=== PATIENT | male | born 1970 | race Asian ===

== ENCOUNTER 2021-11-22 08:05 | Day surgery (SDC) | payer OTHER ==
[~2021-11-22] VITALS: Ht 176 cm; Wt 78.0 kg
[2021-11-22] MEDS ORDERED: diphenhydrAMINE 50 MG/ML VIAL ONE (09:44)
[2021-11-22] MEDS ORDERED: fentaNYL citrate 0.05 MG/ML VIAL ONE (09:44)
[2021-11-22] MEDS ORDERED: MIDAZOLAM 2 MG/2 ML VIAL ONE (09:45)
[2021-11-22] MEDS ORDERED: LIDOCAINE 2% 100 MG/5 ML UJET TP ONE (09:45)
[2021-11-22] MEDS ORDERED: fentaNYL citrate 0.05 MG/ML VIAL IVP ONE (14:15)
[2021-11-22] MEDS ORDERED: MIDAZOLAM 2 MG/2 ML VIAL IVP ONE (14:15)
== END 2021-11-22 10:55 | disposition home or self-care (01) ==
LOC: MMU 08:05 → MDS 08:05
PROVIDERS: ATTEND Internal Medicine Gastroenterology
DX: Z12.11 Encounter for screening for malignant neoplasm of colon (principal); D12.4 Benign neoplasm of descending colon; Z86.010 Personal history of colon polyps; C77.9 Secondary and unspecified malignant neoplasm of lymph node, unspecified; I10 Essential (primary) hypertension; Z20.822 Contact with and (suspected) exposure to COVID-19; Z79.899 Other long term (current) drug therapy
CPT/HCPCS: 45385; 87426; J2250; J3010; J1200